=== PATIENT | male | born 1940 | race Caucasian/White ===

== ENCOUNTER 2019-01-25 05:59 | Day surgery (SDC) | payer MEDICARE, OTHER ==
[2019-01-25] VITALS (13 sets, daily range): BP systolic 122–160; BP diastolic 72–118; PULSE 59–77; TEMP 97.5
[~2019-01-25] VITALS: Ht 198.1 cm; Wt 117.4 kg
[2019-01-25 07:06] LABS: HEMATOCRIT 44.1 % (42.0-52.0); HEMOGLOBIN 14.6 g/dl (13.5-18.0); MEAN CELL VOLUME 94 fl (80.0-100.0); MEAN CORPUSCULAR HEMOGLOBIN 31 pg (27.0-31.0); MEAN CORPUSCULAR HGB CONC 33 g/dl (33.0-37.0); MEAN PLATELET VOLUME 8.7 fl (7.4-10.4); PLATELET COUNT 256 K/mm3 (130-400); RED BLOOD COUNT 4.69 M/mm3 (4.20-5.60); REDCELL DISTRIBUTION WIDTH-CV 13.1 % (11.5-14.5)
[2019-01-25 07:15] LABS: INR 1.1 (0.8-3.0); PROTHROMBIN TIME 12.1 SECONDS (9.7-12.8)
[2019-01-25 07:22] LABS: CALCIUM 9.2 mg/dL (8.4-10.2); CREATININE, serum 0.99 (0.66-1.25)
[2019-01-25] MEDS ORDERED: BENICAR HCT 12.1 TAB PO (07:28)
[2019-01-25] MEDS ORDERED: LIPITOR 40MG TA40 MG PO (07:29)
[2019-01-25] MEDS ORDERED: FISH OIL 1000MG1 CAP PO (07:30)
[2019-01-25] MEDS ORDERED: CHOLESTOFF PO (07:30)
[2019-01-25] MEDS ORDERED: ASPIRIN 32325 MG/TAB PO (07:31)
--- NOTE | 2019-01-25 08:10 | NUR ---
Pt to procedure at [facility] time.Report to JOSE Pitts.
--- NOTE | 2019-01-25 08:46 | NUR ---
ALL MEDICATIONS GIVEN WITH VORB. SEE MERGE FOR ALL MEDICATION ADMIN TIMES.SEE MERGE FOR RASS ASSESSMENTS.POSITIVE ALLENS TEST IN RIGHT WRIST.
--- NOTE | 2019-01-25 14:10 | NUR ---
Discharge instructions given to pt.Pt verbalizes understanding.INT removed,catheter tip intact.Pt escorted out via wheelchair by student nurse.
== END 2019-01-25 15:21 | disposition home or self-care (01) ==
LOC: COL.CAR 05:59
PROVIDERS: Internal Medicine Interventional Cardiology
DX: R07.9 Chest pain, unspecified (principal); R55 Syncope and collapse; R94.39 Abnormal result of other cardiovascular function study; I77.810 Thoracic aortic ectasia; I10 Essential (primary) hypertension; E11.9 Type 2 diabetes mellitus without complications; E78.5 Hyperlipidemia, unspecified; I25.10 Atherosclerotic heart disease of native coronary artery without angina pectoris; I65.21 Occlusion and stenosis of right carotid artery; F17.220 Nicotine dependence, chewing tobacco, uncomplicated; Z79.82 Long term (current) use of aspirin
CPT/HCPCS: J1644; J2250; J3010; Q9967